=== PATIENT | female | born 1985 | race Caucasian/White ===

== ENCOUNTER 2019-04-22 15:45 | Emergency (ER) | payer SELFPAY ==
[2019-04-22 15:46] VITALS: BP 108/59; PULSE 67; RESP 18; TEMP 36.8; O2SAT 98; BMI 27.1
--- NOTE | 2019-04-22 16:30 | RAD_ITS ---
STUDY: X-RAY - LEFT WRIST REASON FOR EXAM: Female, 33 years old. Trauma TECHNIQUE: 3 view(s) of the wrist were obtained. COMPARISON: None. FINDINGS: There is a comminuted minimally displaced fracture of the distal radial metaphysis and epiphysis. A fracture line is noted to extend to the radiocarpal joint space. . Normal distal radioulnar articulation. Normal carpal bones. Normal carpal articulations. Normal carpometacarpal articulation of the thumb. Normal second through fifth carpometacarpal articulations. Normal visualized metacarpal bones. The soft tissue structures are unremarkable. RAD/Wrist min 3 Views IMPRESSION: Comminuted minimally displaced fracture of the distal radial metaphysis and epiphysis. Electronically Signed: Duke Palomino MD at 17:03 EDT , Service support ,
[2019-04-22] MEDS: Morphine 4 MG/ML Syringe IV (16:36)
[2019-04-22] MEDS: Ondansetron 4 MG/2 ML Vial IV (16:36)
--- NOTE | 2019-04-22 16:56 | ED.DCSUM_ITS ---
History of Present Illness Informant: Patient, Family Occurred: Today Mechanism/Context: Fall Onset: Today Context: Sudden Onset Timing: Continuous Quality of Pain: Sharp Location: left wrist Current Severity: Severe Maximum Severity: Severe Worsened by: movement Relieved by: rest Associated Symptoms: Negative for: Parasthesia, Weakness, Loss of Funtion Narrative: 33-year-old [id number] female presents to the emergency department with a left wrist injury by squad. She was at the the [facility] and fell onto her outstretched left wrist. She did not have any prodromal symptoms, she did not hit her head or lose consciousness. She denies any other injuries. She denies any numbness or tingling. She is not on blood thinners. History of injury or surgery to this extremity previously. Tetanus Immunization: Unknown Prior similar symptoms: No Recent Illness/Hospitalization: No <Dusty Daniels - Last Filed: 04/22/19 16:56> <Can Walsh - Last Filed: 04/22/19 17:13> Chief Complaint: Upper Extremity Injury Past Medical History Prior records reviewed: Yes Past Medical History: None Surgical History: no surgical history Smoking Status: Never smoker <Dusty Daniels - Last Filed: 04/22/19 16:56> <Can Walsh - Last Filed: 04/22/19 17:13> - Allergies and Home Meds Allergies/Adverse Reactions: Allergies No Known Allergies Allergy (Verified 04/22/19 15:50) Primary Care Physician: Herminio De Los Santos DO [STAFF PHYSICIAN] - Review of Systems All systems negative except as indicated Musculoskeletal: Reports: Swelling, Extremity Pain <Dusty Daniels - Last Filed: 04/22/19 16:56> Physical Exam Vital Signs/Narrative: Vital Signs Temp Pulse Resp BP Pulse Ox 04/22/19 15:46 98.3 F 67 18 108/59 L 98 Inital Vital Signs reviewed: Yes Left Wrist: Deformity, - - Mild deformity obvious swelling skin is intact. Distal radius diffusely tender. Limited range of motion due to pain and swelling. Radial pulse is normal. Capillary refill and sensation are normal of all 5 fingers. No bony tenderness of the hand forearm or elbow. Elbow range of motion actively is normal <Dusty Daniels - Last Filed: 04/22/19 16:56> Vital Signs/Narrative: Vital Signs Temp Pulse Resp BP Pulse Ox 04/22/19 15:46 98.3 F 67 18 108/59 L 98 <Can Walsh - Last Filed: 04/22/19 17:13> Diagnostic/Tx/Re-eval - Medical Decision Making X-ray was interpreted by the emergency physician it shows a nondisplaced distal radius fracture. Patient is neurovascularly intact. It does not appear to be significantly displaced. Placed in an Ortho-Glass AP splint. Advised rest ice elevation. Will be given a short course of analgesia. She will be referred to orthopedics for follow-up. Return precautions discussed <Dusty Daniels - Last Filed: 04/22/19 16:56> - Medical Decision Making Fall complaint left wrist pain. Patient is right-hand dominant. No other injuries. Physical exam vital signs stable afebrile. HEENT exam atraumatic. Pupils round reactive light. C-spine nontender. Lungs clear. Heart regular rhythm no murmur. Chest wall nontender. Abdomen soft nontender. Extremities moves all 4. Neurovascular intact. Left wrist distal radius pain on palpation. Limited flexion extension of the wrist due to pain. Normal touch sensation and cap refill to her fingertips. Strong radial pulse. Limited range of motion due to her hand due to pain in the wrist. Skin intact. She has swelling at the distal radius. Back exam nontender. Neurologically she is awake and alert. X-ray left wrist 3 views read by us shows a nondisplaced distal radius fracture. There is also ulnar styloid involvement this may be old also. Patient placed in a short arm AP splint with Ortho-Glass. Impressions: 1. Acute fall 2. Acute left wrist distal radius nondisplaced fracture 3. Short arm AP splint applied by ER using Ortho-Glass Pt will up with orthopedics. Ice and elevate. [place] for pain. Motrin for pain and swelling. <Can Walsh - Last Filed: 04/22/19 17:13> Procedures - Upper Extremity Splints Upper Extremity Splint: Orthoglass, Volar Splint Fabrication: Fabricated Location: Left <Dusty Daniels - Last Filed: 04/22/19 16:56> ED Disposition <Dusty Daniels - Last Filed: 04/22/19 16:56> <Can Walsh - Last Filed: 04/22/19 17:13> - Plan for ED Patient: Disposition: Home or Assisted Living Diagnosis: Distal radius fracture, left Instructions: RADIUS AND ULNA FX, No Reduction Required Prescriptions: Naproxen [Naprosyn] 500 mg PO BID PRN #20 tab Prescription Printed Oxycodone HCl/Acetaminophen [Percocet 5/325] 1 tab PO Q6H PRN PRN 3 Days #12 tab PRN Reason: Pain Prescription Printed Referrals: Herminio De Los Santos DO [STAFF PHYSICIAN] -
[2019-04-22 17:16] VITALS: RESP 16
== END 2019-04-22 17:16 | disposition home or self-care (01) ==
PROVIDERS: Emergency Provider Physician Assistant Medical
DX: S52.592A Other fractures of lower end of left radius, initial encounter for closed fracture (principal); W01.0XXA Fall on same level from slipping, tripping and stumbling without subsequent striking against object, initial encounter; Y93.51 Activity, roller skating (inline) and skateboarding; Y92.331 Roller skating rink as the place of occurrence of the external cause; Y99.8 Other external cause status
CPT/HCPCS: 29125; 73110; 96374; 96375; 99284; J7030; A4216; J2405

== ENCOUNTER → 2019-04-25 15:47 | Outpatient (CLI) | payer SELFPAY ==
[2019-04-22 15:46] VITALS: BMI 27.1
--- NOTE | 2019-04-25 15:52 | CT_ITS ---
CT of the left wrist: INDICATION: Trauma COMPARISON: Left wrist radiograph April 22, [address] of the left wrist was performed in the axial plane without contrast followed by sagittal and coronal reconstructions. Radiographic technique was optimized to limit patient radiation dose. DLP was 548.31 FINDINGS: There is an acute comminuted spiral fracture of the distal radial metaphysis extending into the epiphysis with mild separation and dorsal displacement of 3 small bony fragments. Radiocarpal joint space is maintained. The ulna is intact as are the carpal bones. CT/Extremity Upper without Contra IMPRESSION: Mildly displaced acute comminuted spiral fracture of the distal radial shaft Electronically Signed: Hussein Martinez MD at 16:15 EDT , Service support ,
== END ==
PROVIDERS: Referring Provider Physician Assistant; Visit Provider Physician Assistant
DX: S52.572A Other intraarticular fracture of lower end of left radius, initial encounter for closed fracture (principal)
CPT/HCPCS: 73200

== ENCOUNTER → 2019-06-03 10:55 | Outpatient (CLI) | payer SELFPAY ==
--- NOTE | 2019-06-03 11:12 | CT_ITS ---
STUDY: CT LEFT WEIST AND HAND REASON FOR EXAM: Female, 33 years old. Left wrist fracture. RADIATION DOSAGE (If Supplied By Facility): CTDIvol = ( 24.58 ) mGy, DLP = ( 585.19 ) mGycm TECHNIQUE: The patient was scanned in a multi detector CT scanner. High resolution transaxial imaging was performed without the administration of intravenous contrast material. Sagittal and coronal images were reconstructed. Individualized dose optimization techniques were used for this CT. COMPARISON: None. FINDINGS: There are 2 small well-corticated bony fragments at the tip of the distal ulna most compatible with old avulsion fracture. There is a comminuted fracture involving the distal radius with mild separation along the fragments. There is mild sclerosis along the fracture line with partial healing. The distal radioulnar joint is normal. The radiocarpal joint is normal. The carpal bones are intact and normally aligned. The metacarpal and phalanges first through fifth digits are normal. The fingers are maintained intraflexed positioning otherwise normal. The carpal joint and carpometacarpal joints are normal. The metacarpal phalangeal interphalangeal joints are normal. Comminuted fracture of the distal radial metaphysis CT/Extremity Upper without Contra IMPRESSION: Healing fracture of the distal radius with multiple comminuted fragments as described above. Normal alignment. Electronically Signed: Shannon Jonas MD at 2:25 EDT , Service support ,
--- NOTE | 2019-06-03 11:12 | CT_ITS ---
STUDY: CT LEFT WEIST AND HAND REASON FOR EXAM: Female, 33 years old. Left wrist fracture. RADIATION DOSAGE (If Supplied By Facility): CTDIvol = ( 24.58 ) mGy, DLP = ( 585.19 ) mGycm TECHNIQUE: The patient was scanned in a multi detector CT scanner. High resolution transaxial imaging was performed without the administration of intravenous contrast material. Sagittal and coronal images were reconstructed. Individualized dose optimization techniques were used for this CT. COMPARISON: None. FINDINGS: There are 2 small well-corticated bony fragments at the tip of the distal ulna most compatible with old avulsion fracture. There is a comminuted fracture involving the distal radius with mild separation along the fragments. There is mild sclerosis along the fracture line with partial healing. The distal radioulnar joint is normal. The radiocarpal joint is normal. The carpal bones are intact and normally aligned. The metacarpal and phalanges first through fifth digits are normal. The fingers are maintained intraflexed positioning otherwise normal. The carpal joint and carpometacarpal joints are normal. The metacarpal phalangeal interphalangeal joints are normal. Comminuted fracture of the distal radial metaphysis CT/Coronals Sag Multi Obl 3-D Rec IMPRESSION: Healing fracture of the distal radius with multiple comminuted fragments as described above. Normal alignment. Electronically Signed: Shannon Jonas MD at 2:25 EDT , Service support ,
== END ==
DX: S52.572P Other intraarticular fracture of lower end of left radius, subsequent encounter for closed fracture with malunion (principal)
CPT/HCPCS: 73200; 76377